=== PATIENT | male | born 1950 | race Caucasian/White ===

== ENCOUNTER 2016-07-12 10:36 | Emergency (ER) | payer MEDICARE, OTHER ==
[2016-07-12] MEDS ORDERED: oxyCOD/ACETAMIN 5 MG/325 MG TABLET PO STA (12:59)
[2016-07-12] MEDS ORDERED: oxyCOD/ACETAMIN 5 MG/325 MG TABLET PO ONE (13:06)
== END 2016-07-12 13:31 | disposition home or self-care (01) ==
DX: M23.307 Other meniscus derangements, unspecified meniscus, left knee (principal); W01.0XXA Fall on same level from slipping, tripping and stumbling without subsequent striking against object, initial encounter; X50.0XXA Overexertion from strenuous movement or load, initial encounter; M25.462 Effusion, left knee
CPT/HCPCS: 73564; 99283; A9270

== ENCOUNTER 2020-10-18 16:28 | Outpatient (CLI) | payer MEDICARE, OTHER ==
--- NOTE | 2020-10-18 16:55 | XRAY Report ---
PROCEDURE: Chest 2 View X-Ray INDICATIONS: CHEST PAIN TECHNIQUE: 2 view(s) of the chest. COMPARISON: None. FINDINGS: Surgical changes and devices: None. Lungs and pleura: No pleural effusions or pneumothorax. Lungs are clear. Mediastinum: Mediastinal contours are normal. Heart size is normal. Bones and chest wall: No suspicious bony abnormalities. Soft tissues appear unremarkable. IMPRESSION: No acute process. Reviewed by: Jacey Ac MD on 10/18/2020 4:54 PM PDT Approved by: Jacey Ac MD on 10/18/2020 4:54 PM PDT Station ID: [id number]
== END 2020-10-18 16:29 | disposition home or self-care (01) ==
LOC: DI 16:28
PROVIDERS: ATTEND Internal Medicine
DX: R07.89 Other chest pain (principal)

== ENCOUNTER 2021-11-30 16:28 | Outpatient (CLI) | payer MEDICARE, OTHER ==
--- NOTE | 2021-12-01 10:11 | XRAY Report ---
PROCEDURE: Finger(s) LT INDICATIONS: L THUMB PX TECHNIQUE: AP hand, 2 views of the left first finger(s) acquired. COMPARISON: None FINDINGS: Bones: No fractures or dislocations. Asymmetric joint space loss the first interphalangeal joint moses ng the lateral margin with dystrophic calcification and marginal spurring. Questionable periarticular erosion. Elsewhere in the hand, there are juxta-articular lucencies and subcortical cysts, particula rly in the second PIP, third PIP, fourth DIP, and fifth PIP joints. No suspicious bony lesions. Soft tissues: No suspicious soft tissue calcifications. IMPRESSION: 1. Arthritic changes seen throughout the digits with nonspecific characteristics. Consider inflammato ry arthritis, gouty arthritis, and erosive osteoarthritis. Reviewed by: Lula Mckeon MD on 12/01/2021 10:09 AM PDT Approved by: Lula Mckeon MD on 12/01/2021 10:09 AM PDT Station ID: [id number]
== END 2021-11-30 16:29 | disposition home or self-care (01) ==
LOC: DI.N 16:28
PROVIDERS: ATTEND Physician Assistant
DX: M79.645 Pain in left finger(s) (principal)

== ENCOUNTER 2022-01-31 14:25 | Outpatient (CLI) | payer MEDICARE, OTHER ==
[2022-01-31 15:33] VITALS: BP 130/80
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
== END 2022-01-31 14:26 | disposition home or self-care (01) ==
LOC: SC 14:25
PROVIDERS: ATTEND Nurse Practitioner Family
DX: R06.83 Snoring (principal); R06.81 Apnea, not elsewhere classified; G47.8 Other sleep disorders; R51.9 Headache, unspecified; G47.10 Hypersomnia, unspecified
CPT/HCPCS: 99203; G0463; 99212

== ENCOUNTER 2022-03-22 15:46 | Outpatient (CLI) | payer MEDICARE, OTHER ==
--- NOTE | 2022-03-22 16:14 | SLEEP CARE CONSULTATION ---
Information from patient questionnaire entered by Emily Cole. I have reviewed and concur with the information entered by Emily Cole. This document represents the service I personally performed and the decisions made by , Lizzie Tillman ARNP. History of Present Illness Service Date and Time: 03/22/2022 1546 Initial Robson Sleepiness Scale score: 13 (01/2022) Current Robson Sleepiness Scale score: 5 (03/22/2022) Additional HPI information: PRACHI GUTIERREZ returns for follow up and results of the recently performed polysomnography. I explained the pathophysiology behind obstructive sleep apnea. We then spent quite a bit of time discussing different treatment options. For mild obstructive sleep apnea, surgery and oral appliance are alternatives to nasal CPAP therapy but in moderate or severe cases, nasal CPAP is the most effective and reliable treatment. Because apnea is primarily in supine position, then positional management therapy could be effective. Methods discussed such as positioning with pillows to prevent supine sleep. I reviewed the impact of weight changes on sleep apnea and strongly recommended losing weight. After some discussion, the patient opted to go with the nasal CPAP therapy. Nasal autoCPAP set at 4-15 cmH20 will be ordered with rationale explained. A manual titration study will be ordered if unable to find optimal pressure with office adjustments. I explained how CPAP machine works and what to expect when using the machine. Using CPAP every night in order to get used to it was emphasized. Patient advised to put CPAP mask on before getting into bed so as not to fall asleep without CPAP. The patient was instructed to call the CPAP supplier to discuss any mechanical problem that may occur. If the mask given is uncomfortable or is difficult to keep on through the night even with adjustment, contact the CPAP supplier as many will replace with another mask style if notified before 30 days. If snoring or perceives is not getting enough air or too much air from the machine, notify this office. Patient was cautioned about risks of drowsy driving until sleepiness symptoms resolve. Sleep Study - Results Type of Sleep Study: Polysomnography (COMPLETED 02/24/2022) Prior sleep studies: No Polysomnography/Home Sleep Study results: IMPRESSION: The quality of the study is good. The patient had normal sleep efficiency. The sleep architecture was abnormal for sleep fragmentation and reduced amount of time spent in slow wave sleep (N3). Respiratory monitoring showed moderate obstructive sleep apnea-hypopnea (AHI = 17.7) associated with frequent arousals, oxyhemoglobin desaturation and mild hypoxia (mane oxygen saturation of 80%). The respiratory events occurred mainly during supine sleep (supine AHI = 36.8; non-supine = 5.70). Snore was moderate to loud in intensity. There was mild periodic leg movement of sleep not contributing to the sleep fragmentation. Cardiac rhythm was normal sinus rhythm without significant arrhythmia. No abnormal behavior (parasomnia) observed during the night. Allergies and Home Medications Drug allergies reviewed: Yes (NKDA) Home medication list reviewed: Yes (no changes) Review of Systems Review of systems same as previous: Yes (no changes) Physical Exam Vital signs obtained and entered by: VIA PHONE Height: 6 ft Weight: 240 lb (pt reported) Body Mass Index: 32.5 BMI Classification: Obese Impression and Plan 1. Obstructive Sleep Apnea-Hypopnea Syndrome, moderate, with lowest oxygen saturation of 80%. Obviously this is the cause of the patients symptoms of unrefreshed sleep, and excessive daytime sleepiness. As mentioned above, the patient will be started on nasal autoCPAP therapy with pressure set at 4-15 cmH2 O. Compliance guidelines also reviewed. A copy of compliance guidelines will be given for reference at check out. Because the apnea is more severe supine, I instructed to avoid sleeping supine using pillow positioning until able to start CPAP use. 2. Hypoxemia, mild, with a mane oxygen saturation of 80% and 6.9 minutes spent under 90%. His baseline oxygen saturation was normal with an average oxygen saturation of 93%. 2. Obesity, unspecified. Currently patients BMI is 32.5. Obesity increases the risk of apnea, CPAP pressure requirements and overall health risks especially cardiovascular and diabetes. Thus patient is advised to lose weight. * Nasal auto CPAP therapy, pressure at 4-15 cm H2O. * Attempt to lose weight. * Avoid alcohol consumption near bedtime. * Avoid supine sleep until using CPAP. * The patient is again cautioned about driving until sleepiness completely resolves. * Return one month after CPAP obtained. I will assess response to therapy and compliance at that time. Counseling Topics: Weight loss health impact Visit Type: Telehealth Phone Video Type: Doximity Patient Location: Home Location of Provider: Office Patient agrees and consents to this telehealth visit type: Yes Patient agrees to have their insurance billed: Yes Time Spent with Patient (minutes): 12 Provider Statement: I spent 100% of the Telehealth Phone Call with the patient with greater than 50% spent counseling the patient and coordination of care.
== END 2022-03-22 15:47 | disposition home or self-care (01) ==
LOC: SC 15:46
PROVIDERS: ATTEND Nurse Practitioner Family
DX: G47.33 Obstructive sleep apnea (adult) (pediatric) (principal); R09.02 Hypoxemia; E66.9 Obesity, unspecified; Z68.32 Body mass index [BMI] 32.0-32.9, adult

== ENCOUNTER 2022-05-02 16:21 | Outpatient (CLI) | payer MEDICARE, OTHER ==
--- NOTE | 2022-05-02 16:51 | XRAY Report ---
PROCEDURE: Hand 3 View BILAT INDICATIONS: EDEMTOUS/TTP TECHNIQUE: 3 views of the hand(s) acquired. COMPARISON: None FINDINGS: Bones: No fractures or dislocations. The interphalangeal joints have joint space narrowing. No eros ions. No proliferative changes. There are marginal osteophytes most prominent in the thumb interphala ngeal joint. Subcortical cysts and juxta-articular lucencies are seen at multiple joints. No suspicio us bony lesions. Soft tissues: No suspicious soft tissue calcifications. IMPRESSION: Degenerative changes of the interphalangeal joints as above most consistent with osteoar thritis. Reviewed by: Robin Javier on 05/02/2022 4:50 PM PST Approved by: Robin Javier on 05/02/2022 4:50 PM [facility] Station ID: [id number]
== END 2022-05-02 16:22 | disposition home or self-care (01) ==
LOC: DI 16:21
PROVIDERS: ATTEND Internal Medicine
DX: M19.041 Primary osteoarthritis, right hand (principal); M19.042 Primary osteoarthritis, left hand

== ENCOUNTER 2022-11-24 09:03 | Outpatient (CLI) | payer MEDICARE, OTHER ==
--- NOTE | 2022-11-24 12:11 | XRAY Report ---
PROCEDURE: Chest 2 View X-Ray INDICATIONS: COUGH TECHNIQUE: 2 views of the chest were acquired. COMPARISON: None. FINDINGS: Surgical changes and devices: None. Lungs and pleura: No pleural effusions or pneumothorax. Lungs are clear. Mediastinum: Mediastinal contours appear normal. Heart size is mildly prominent. Bones and chest wall: No suspicious bony lesions. Overlying soft tissues appear unremarkable. IMPRESSION: No acute cardiopulmonary process. Reviewed by: Isamar Holbrook MD on 11/24/2022 12:10 PM PDT Approved by: Isamar Holbrook MD on 11/24/2022 12:10 PM PDT Station ID: [id number]
== END 2022-11-24 09:04 | disposition home or self-care (01) ==
LOC: DI 09:03
PROVIDERS: ATTEND Internal Medicine
DX: R05.9 Cough, unspecified (principal)

== ENCOUNTER 2023-03-14 14:52 | Outpatient (CLI) | payer MEDICARE, OTHER ==
--- NOTE | 2023-03-14 17:22 | MRI Report ---
PROCEDURE: SHOULDER WO - RT INDICATIONS: RIGHT ROTATOR CUFF TEAR TECHNIQUE: Noncontrast oblique coronal T2 fast spin echo with fat saturation, oblique sagittal T1 spin echo and T2 fast spin echo with fat saturation, axial T1 spin echo and T2 fast spin echo with fat saturation t hrough the shoulder. COMPARISON: None. FINDINGS: Image quality: Excellent. Rotator cuff: Low-grade articular and bursal surface partial-thickness tear involving distal supraspi natus at its insertion on humeral head is seen extending to muscular tendinous junction. Calcificatio n involving anterior fibers of distal supraspinatus at its insertion on humeral head is noted suggest yee of hydroxyapatite deposition disease. Low-grade articular surface partial-thickness tear involvin g distal infraspinatus at its insertion on humeral head is seen. Low-grade partial-thickness tear is also seen involving superior fibers of distal subscapularis. No full-thickness rotator cuff tendon ru pture. No significant rotator cuff muscle atrophy on sagittal images. Bones and bursae: No bone marrow contusions or fractures. Moderate acromioclavicular joint osteoarth ritis is seen with joint space narrowing, subchondral sclerosis and downward osteophyte formation dep ressing on musculotendinous junction of supraspinatus. The acromion demonstrates conventional anatomy , without an os acromiale. Small amount of subacromial subdeltoid bursal fluid is seen, no gross loos e bodies. Capsule and soft tissues: There is signal abnormality and fraying of superior anterior labrum at 1 to 2:00 position suggestive of subtle superior anterior labral tear. A tiny 4 mm perilabral cyst is not ed adjacent to superior anterior labrum. The long head of the biceps tendon demonstrates normal locat ion and morphology. The rotator interval appears normal, without fibrosis. The coracohumeral ligame nt is normal in thickness. IMPRESSION: 1. Low-grade articular and bursal surface partial-thickness tear involving distal supraspinatus exten ding to muscular tendinous junction. Suggestion of calcific tendinitis involving anterior fibers of d istal supraspinatus tendon at its insertion on greater trochanter. Low-grade articular surface partia l-thickness tear involving distal infraspinatus. Low-grade partial-thickness tear involving superior fibers of distal subscapularis. No full-thickness rotator cuff tendon rupture. No significant rotator cuff muscle atrophy. 2. Moderate acromioclavicular joint osteoarthritis. No fracture or dislocation. Small amount of subac romial subdeltoid bursal fluid. No gross loose bodies. 3. Finding is concerning for subtle superior anterior labral tear at 1 to 2:00 position with adjacent 4 mm perilabral cyst. Reviewed by: Nehemiah Galindo MD on 03/14/2023 5:21 PM PDT Approved by: Nehemiah Galindo MD on 03/14/2023 5:21 PM PDT Station ID: [id number]
== END 2023-03-14 14:53 | disposition home or self-care (01) ==
LOC: DI 14:52
PROVIDERS: ATTEND Orthopaedic Surgery
DX: M75.111 Incomplete rotator cuff tear or rupture of right shoulder, not specified as traumatic (principal); M19.011 Primary osteoarthritis, right shoulder